=== PATIENT | male | born 1990 | race African-American/Black ===

== ENCOUNTER 2018-03-28 17:23 | Emergency (ER) | payer OTHER ==
[~2018-03-28] VITALS: Ht 185.4 cm; Wt 78.5 kg
[~2018-03-28 17:23] MED LIST: CLARITIN-D 12 H1 TA2 PO; IBUPROFEN 600600 M1 PO; NORFLEX100 MG PO; ULTRAM 50MG TAB50 MG PO
[2018-03-28 17:34] VITALS: BP 129/78
[2018-03-28] MEDS ORDERED: BACTROBAN CREAM30 G1 TOP (18:42)
[2018-03-28 19:09] LABS: URINE BILIRUBIN NEGATIVE (Negative); URINE BLOOD TRACE (Negative); URINE CLARITY CLEAR; URINE COLOR YELLOW; URINE GLUCOSE-RANDOM* NEGATIVE (Negative); URINE KETONES NEGATIVE (Negative); URINE LEUKOCYTES-REFLEX NEGATIVE (Negative); URINE NITRITE-REFLEX NEGATIVE (Negative); URINE PROTEIN (DIPSTICK) NEGATIVE (Negative); URINE UROBILINOGEN 0.2 E.U./dl (0.2-1.0)
[2018-03-29 09:07] LABS: HSV PCR SOURCE BLISTER
[2018-03-30 19:07] LABS: HSV 1 DNA Positive (Negative); HSV 2 DNA Negative (Negative)
== END 2018-03-28 19:14 | disposition home or self-care (01) ==
LOC: ER 17:23
PROVIDERS: Physician Assistant
DX: L73.9 Follicular disorder, unspecified (principal); R30.0 Dysuria

== ENCOUNTER 2018-08-20 07:04 | Emergency (ER) | payer OTHER ==
[~2018-08-20] VITALS: Ht 182.9 cm; Wt 79.4 kg
[~2018-08-20 07:04] MED LIST changes: +BACTROBAN CREAM30 G1 TOP
[2018-08-20 08:23] VITALS: BP 118/78
== END 2018-08-20 08:25 | disposition home or self-care (01) ==
LOC: ER 07:04
DX: R51 Headache (principal)